=== PATIENT | female | born 1945 | race Two or more races ===

== ENCOUNTER 2017-07-22 09:23 | Outpatient (CLI) | payer OTHER | END 2017-07-22 09:30 | disposition home or self-care (01) | LOC: SONOGRAMA 09:23 | DX: E04.1 Nontoxic single thyroid nodule (principal) ==

== ENCOUNTER 2018-04-18 14:46 | Inpatient (IN) | payer OTHER ==
[~2018-04-18] VITALS: Ht 149.9 cm; Wt 77.1 kg
[2018-04-18] MEDS ORDERED: ASPIR 8181 MG (15:40)
[2018-04-18] MEDS ORDERED: FORTAMET1000 MG (15:40)
[2018-04-26] MEDS ORDERED: Tussi-Organidin Dm-S PO (09:46)
== END 2018-04-26 11:22 | disposition home or self-care (01) | DRG 152 ==
LOC: ER 14:46 → MEDJ 04-19 09:36 → SEC-K 04-19 09:36 → MEDJ 04-19 22:49
PROVIDERS: ADMIT Internal Medicine
PROC: 8E0ZXY6 Isolation (ICD-10-PCS; principal; 2018-04-19)
PROC: 3E0F7GC Introduction of Other Therapeutic Substance into Respiratory Tract, Via Natural or Artificial Opening (ICD-10-PCS; 2018-04-19)
DX: J11.1 Influenza due to unidentified influenza virus with other respiratory manifestations (principal); A41.89 Other specified sepsis; R65.20 Severe sepsis without septic shock; N17.8 Other acute kidney failure; J45.31 Mild persistent asthma with (acute) exacerbation; E11.649 Type 2 diabetes mellitus with hypoglycemia without coma; I13.10 Hypertensive heart and chronic kidney disease without heart failure, with stage 1 through stage 4 chronic kidney disease, or unspecified chronic kidney disease; N18.9 Chronic kidney disease, unspecified

== ENCOUNTER 2018-09-12 10:56 | Outpatient (CLI) | payer OTHER ==
[~2018-09-12 10:56] MED LIST: ASPIR 8181 MG; FORTAMET1000 MG; Tussi-Organidin Dm-S PO
== END 2018-09-12 11:00 | disposition home or self-care (01) ==
LOC: SONOGRAMA 10:56
DX: E04.2 Nontoxic multinodular goiter (principal)